=== PATIENT | female | born 1965 | race Caucasian/White ===

== ENCOUNTER 2018-06-22 12:46 | Day surgery (SDC) | payer MEDICAID ==
[~2018-06-22] VITALS: Ht 160 cm; Wt 77.5 kg
[~2018-06-22 12:46] MED LIST: AZEL23SP NASAL; DOXY100C PO; METHI5 PO; METR250 PO; PANT20TA12 PO; SODIUM CHLORIDE 0.9% 0 ML IV ONE; SODIUM CHLORIDE 0.9% 1,000 ML IV ONE
[2018-06-22] MEDS ORDERED: PROPOFOL 1% 20 ML VIAL IVP ONE (12:47)
== END 2018-06-22 15:20 | disposition home or self-care (01) ==
LOC: SURGERY 12:46
PROVIDERS: ATTEND Internal Medicine Gastroenterology
DX: K29.50 Unspecified chronic gastritis without bleeding (principal); E03.9 Hypothyroidism, unspecified; F17.200 Nicotine dependence, unspecified, uncomplicated; Z72.89 Other problems related to lifestyle; Z98.890 Other specified postprocedural states; Z87.09 Personal history of other diseases of the respiratory system; Z86.39 Personal history of other endocrine, nutritional and metabolic disease; Z79.1 Long term (current) use of non-steroidal anti-inflammatories (NSAID); Z98.51 Tubal ligation status
CPT/HCPCS: 43239; 88305; 88312; 88313; C1769; J2704; J7030